=== PATIENT | female | born 1965 | race Caucasian/White ===

== ENCOUNTER 2023-07-28 12:26 | Day surgery (SDC) | payer BC ==
[2023-07-28] MEDS ORDERED: LIDOCAINE HCL 1% 50 MG/5 ML VL PF IJ ONE (12:27)
[2023-07-28] MEDS ORDERED: DIPRIVAN 200 MG/20 ML IV ONE (14:29)
--- NOTE | 2023-07-28 15:04 | XRAY ---
Indication: Bilateral L4-S1 MBB. Intraoperative fluoroscopy provided for 15 seconds. Single digital spot image submitted for interpretation demonstrates posterior needle tips projecting over the expected left and right L4-S1 nerve roots. Correlate with intraoperative findings/report.
[2023-07-28] MEDS ORDERED: Lactated Ringers 1,000 ML IV ONE (15:06)
--- NOTE | 2023-07-28 17:05 | XRAY ---
15 seconds of fluoroscopy was used in surgery for a bilateral L4-S1 MBB.
== END 2023-07-28 15:00 | disposition home or self-care (01) ==
LOC: SDC-PAIN 12:26
PROVIDERS: ATTEND Psychiatry & Neurology Pain Medicine
DX: M47.816 Spondylosis without myelopathy or radiculopathy, lumbar region (principal); Z79.899 Other long term (current) drug therapy
CPT/HCPCS: 64493; 64494; 72020; 77002; J2001; J2704

== ENCOUNTER 2023-09-08 13:51 | Day surgery (SDC) | payer BC ==
[2023-09-08] MEDS ORDERED: BUPIVACAINE 0.5% VIAL IJ ONE (13:52)
[2023-09-08] MEDS ORDERED: XYLOCAINE 1% HCL 20 ML MDV IJ ONE (13:52)
[2023-09-08] MEDS ORDERED: Depo-Medrol 40 MG/ML IM ONE (13:52)
[2023-09-08] MEDS ORDERED: DIPRIVAN 200 MG/20 ML IV ONE (16:55)
[2023-09-08] MEDS ORDERED: Lactated Ringers 1,000 ML IV ONE (17:42)
--- NOTE | 2023-09-08 21:26 | XRAY ---
Indication: Bilateral SI joint injection. Intraoperative fluoroscopy provided for 24 seconds. 4 digital spot image submitted for interpretation demonstrates posterior needle tip projecting over the expected left and right SI joint. Correlate with intraoperative findings/report.
--- NOTE | 2023-09-09 09:39 | XRAY ---
24 seconds of fluoroscopy was used in surgery for a bilateral sacroiliac joint injection.
== END 2023-09-08 17:25 | disposition home or self-care (01) ==
LOC: SDC-PAIN 13:51
PROVIDERS: ATTEND Psychiatry & Neurology Pain Medicine
DX: M46.1 Sacroiliitis, not elsewhere classified (principal)
CPT/HCPCS: 20553; 27096; 72202; 77002; J1030; J2704; G0260

== ENCOUNTER 2023-10-13 13:53 | Day surgery (SDC) | payer BC ==
[2023-10-13] MEDS ORDERED: BUPIVACAINE 0.5% VIAL IJ ONE (13:54)
[2023-10-13] MEDS ORDERED: Depo-Medrol 40 MG/ML IM ONE (13:54)
[2023-10-13] MEDS ORDERED: XYLOCAINE-MPF 1% 5ML SDV IJ ONE (13:54)
[2023-10-13] MEDS ORDERED: Decadron 4 MG INJ IV ONE (13:54)
[2023-10-13] MEDS ORDERED: DIPRIVAN 200 MG/20 ML IV ONE (15:23)
[2023-10-13] MEDS ORDERED: Lactated Ringers 1,000 ML IV ONE (17:10)
--- NOTE | 2023-10-13 17:19 | XRAY ---
Indication: Bilateral hip and bilateral piriformis injection. Intraoperative fluoroscopy provided for 1 minutes 7 seconds. 5 digital spot images submitted for interpretation demonstrates posterior needle tips projecting over the left/right piriformis. Additional needle tips lateral to the left/right femur necks. Small amount of contrast injected for all needle tip placement. Correlate with intraoperative findings/report.
--- NOTE | 2023-10-13 17:41 | XRAY ---
One minute and 7 seconds of fluoroscopy was used in surgery for a bilateral intra-articular hip and piriformis injection.
== END 2023-10-13 15:50 | disposition home or self-care (01) ==
LOC: SDC-PAIN 13:53
PROVIDERS: ATTEND Psychiatry & Neurology Pain Medicine
DX: M16.12 Unilateral primary osteoarthritis, left hip (principal); M16.11 Unilateral primary osteoarthritis, right hip; M79.18 Myalgia, other site
CPT/HCPCS: 20552; 20610; 73522; 77002; J1030; J1100; J2704; Q9966

== ENCOUNTER 2024-01-05 11:49 | Day surgery (SDC) | payer BC ==
[2024-01-05] MEDS ORDERED: Depo-Medrol 40 MG/ML IM ONE (11:50)
[2024-01-05] MEDS ORDERED: BUPIVACAINE 0.5% VIAL IJ ONE (11:50)
[2024-01-05] MEDS ORDERED: Lactated Ringers 1,000 ML IV ONE (13:43)
[2024-01-05] MEDS ORDERED: DIPRIVAN 200 MG/20 ML IV ONE (13:45)
--- NOTE | 2024-01-05 17:07 | XRAY ---
Indication: Right knee injection. Intraoperative fluoroscopy provided for 9 seconds. Single digital spot image submitted for interpretation demonstrates needle tip projecting over right femur intercondylar notch. Small amount of contrast injected for needle tip placement. Correlate with intraoperative findings/report.
--- NOTE | 2024-01-05 17:07 | XRAY ---
Indication: Left knee injection. Intraoperative fluoroscopy provided for 8 seconds. Single digital spot image submitted for interpretation demonstrates needle tip projecting over left femur intercondylar notch. Small amount of contrast injected for needle tip placement. Correlate with intraoperative findings/report.
--- NOTE | 2024-01-05 17:41 | XRAY ---
9 seconds of fluoroscopy was used in surgery for a right intra-articular knee injection.
--- NOTE | 2024-01-05 17:41 | XRAY ---
8 seconds of fluoroscopy was used in surgery for a left intra-articular knee injection.
== END 2024-01-05 14:10 | disposition home or self-care (01) ==
LOC: SDC-PAIN 11:49
PROVIDERS: ATTEND Psychiatry & Neurology Pain Medicine
DX: M17.0 Bilateral primary osteoarthritis of knee (principal)
CPT/HCPCS: 20610; 73560; 77002; J1030; J2704; Q9966

== ENCOUNTER 2024-06-21 12:10 | Day surgery (SDC) | payer BC ==
[2024-06-21] MEDS ORDERED: BUPIVACAINE 0.5% VIAL IJ ONE (12:11)
[2024-06-21] MEDS ORDERED: Depo-Medrol 40 MG/ML IM ONE (12:11)
[2024-06-21] MEDS ORDERED: DIPRIVAN 200 MG/20 ML IV ONE (13:31)
[2024-06-21] MEDS ORDERED: Lactated Ringers 1,000 ML IV ONE (13:49)
--- NOTE | 2024-06-21 15:02 | XRAY ---
Indication: Bilateral SI joint injection. Intraoperative fluoroscopy provided for 28 seconds. 4 digital spot image submitted for interpretation demonstrates posterior needle tips projecting over the expected left and right SI joint. Small amount of contrast injected for needle tip placement. Correlate with intraoperative findings/report.
--- NOTE | 2024-06-21 16:52 | XRAY ---
28 seconds of fluoroscopy was used in surgery for a bilateral sacroiliac joint injection.
== END 2024-06-21 13:57 | disposition home or self-care (01) ==
LOC: SDC-PAIN 12:10
PROVIDERS: ATTEND Psychiatry & Neurology Pain Medicine
DX: M46.1 Sacroiliitis, not elsewhere classified (principal)
CPT/HCPCS: 27096; 72202; 77002; J2704; Q9967; G0260

== ENCOUNTER 2024-10-11 12:02 | Day surgery (SDC) | payer BC ==
[2024-10-11] MEDS ORDERED: Depo-Medrol 40 MG/ML IM ONE (12:03)
[2024-10-11] MEDS ORDERED: BUPIVACAINE 0.5% VIAL IJ ONE (12:03)
[2024-10-11] MEDS ORDERED: DIPRIVAN 200 MG/20 ML IV ONE (14:30)
--- NOTE | 2024-10-11 16:35 | XRAY ---
Indication: Bilateral SI joint injection. Intraoperative fluoroscopy provided for 27 second. 4 digital spot image submitted for interpretation demonstrates posterior needle tips projecting over left and right SI joint. Small amount of contrast injected for both needle tip placement. Correlate with intraoperative findings/report.
--- NOTE | 2024-10-11 16:47 | XRAY ---
27 seconds of fluoroscopy was used in surgery for a bilateral sacroiliac joint injection.
== END 2024-10-11 15:09 | disposition home or self-care (01) ==
LOC: SDC-PAIN 12:02
PROVIDERS: ATTEND Psychiatry & Neurology Pain Medicine
DX: M46.1 Sacroiliitis, not elsewhere classified (principal)
CPT/HCPCS: 27096; 72202; 77002; J2704; Q9966

== ENCOUNTER 2024-12-07 10:44 | Day surgery (SDC) | payer BC ==
[2024-12-07] MEDS ORDERED: Sensorcaine 0.25% 10 ML IJ ONE (10:45)
[2024-12-07] MEDS ORDERED: methylPREDNISolone acetate IM ONE (10:45)
[2024-12-07] MEDS ORDERED: propofoL IV ONE (12:26)
[2024-12-07] MEDS ORDERED: SUBLIMAZE 100 MCG/2 ML ONE (12:31)
--- NOTE | 2024-12-07 13:21 | XRAY ---
Indication: Bilateral hip and greater trochanter bursa injection Intraoperative fluoroscopy provided for 41 seconds. 6 digital spot image submitted for interpretation demonstrates needle tips lateral to left/right femur necks and left/right greater trochanters. Small amount of contrast injected for all needle tip placement. Correlate with intraoperative findings/report.
--- NOTE | 2024-12-07 13:46 | XRAY ---
41 seconds of fluoroscopy was used in surgery for a bilateral intra-articular hip and greater trochanteric bursa injection.
== END 2024-12-07 13:00 | disposition home or self-care (01) ==
LOC: SDC-PAIN 10:44
PROVIDERS: ATTEND Psychiatry & Neurology Pain Medicine
DX: M16.0 Bilateral primary osteoarthritis of hip (principal); M70.62 Trochanteric bursitis, left hip; M70.61 Trochanteric bursitis, right hip
CPT/HCPCS: 20610; 73522; 77002; J1010; J2704; J3010; Q9966

== ENCOUNTER 2025-01-31 10:47 | Day surgery (SDC) | payer BC ==
[2025-01-31] MEDS ORDERED: LIDOCAINE HCL 2% 100 MG/5 ML IJ ONE (10:48)
[2025-01-31] MEDS ORDERED: propofoL IV ONE (12:43)
--- NOTE | 2025-01-31 15:04 | XRAY ---
Indication: Bilateral L4-S1 MBB. Intraoperative fluoroscopy provided for 29 seconds. Single digital spot image submitted for interpretation demonstrates posterior needle tips projecting over expected left and right L4-S1 nerve roots. Correlate with intraoperative findings/report.
--- NOTE | 2025-01-31 15:33 | XRAY ---
29 seconds of fluoroscopy was used in surgery for a bilateral L4-S1 MBB.
== END 2025-01-31 13:20 | disposition home or self-care (01) ==
LOC: SDC-PAIN 10:47
PROVIDERS: ATTEND Psychiatry & Neurology Pain Medicine
DX: M47.816 Spondylosis without myelopathy or radiculopathy, lumbar region (principal)
CPT/HCPCS: 64493; 64494; 72020; 77002; J2704

== ENCOUNTER 2025-03-14 11:33 | Day surgery (SDC) | payer BC ==
[2025-03-14] MEDS ORDERED: Depo-Medrol 40 MG/ML IM ONE (11:34)
[2025-03-14] MEDS ORDERED: BUPIVACAINE 0.5% VIAL IJ ONE (11:34)
[2025-03-14] MEDS ORDERED: propofoL IV ONE (14:19)
--- NOTE | 2025-03-14 16:30 | XRAY ---
Indication: Bilateral L4-S1 MBB. Intraoperative fluoroscopy provided for 18 seconds. Single digital spot image submitted for interpretation demonstrates posterior needle tips projecting over expected left and right L4-S1 nerve roots. Correlate with intraoperative findings/report.
--- NOTE | 2025-03-14 16:46 | XRAY ---
18 seconds of fluoroscopy was used in surgery for a bilateral L4-S1 MBB.
== END 2025-03-14 14:57 | disposition home or self-care (01) ==
LOC: SDC-PAIN 11:33
PROVIDERS: ATTEND Psychiatry & Neurology Pain Medicine
DX: M47.817 Spondylosis without myelopathy or radiculopathy, lumbosacral region (principal)
CPT/HCPCS: 64493; 64494; 72020; J2704

== ENCOUNTER 2025-04-11 12:36 | Day surgery (SDC) | payer BC ==
[2025-04-11] MEDS ORDERED: BUPIVACAINE 0.5% VIAL IJ ONE (12:37)
[2025-04-11] MEDS ORDERED: methylPREDNISolone acetate IM ONE (12:37)
[2025-04-11] MEDS ORDERED: LIDOCAINE HCL 1% 50 MG/5 ML VL IJ ONE (12:37)
[2025-04-11] MEDS ORDERED: propofoL IV ONE (14:49)
[2025-04-11] MEDS ORDERED: Lactated Ringers 1,000 ML IV ONE (16:37)
--- NOTE | 2025-04-11 21:08 | XRAY ---
Indication: Right L4-S1 RFA. Intraoperative fluoroscopy provided for 28 seconds. 3 digital spot image submitted for interpretation demonstrates posterior needle tips projecting over expected right L4-S1 nerve roots. Correlate with intraoperative findings/report.
--- NOTE | 2025-04-11 21:22 | XRAY ---
28 seconds of fluoroscopy was used in surgery for a right L4-S1 RFA.
== END 2025-04-11 15:29 | disposition home or self-care (01) ==
LOC: SDC-PAIN 12:36
PROVIDERS: ATTEND Psychiatry & Neurology Pain Medicine
DX: M47.817 Spondylosis without myelopathy or radiculopathy, lumbosacral region (principal)
CPT/HCPCS: 64635; 64636; 72100; J1010; J2704

== ENCOUNTER 2025-08-22 11:06 | Day surgery (SDC) | payer BC ==
[2025-08-22] MEDS ORDERED: GELSYN-3 IU ONE (11:07)
[2025-08-22] MEDS ORDERED: propofoL IV ONE ×2 (12:49→13:17)
[2025-08-22] MEDS ORDERED: Xylocaine-Mpf 2% 5 Ml Vial ONE (13:14)
[2025-08-22] MEDS ORDERED: Lactated Ringers 1,000 ML IV ONE (13:47)
--- NOTE | 2025-08-22 14:54 | XRAY ---
Indication: Right knee injection. Intraoperative fluoroscopy provided for 5 seconds. Single digital spot image submitted for interpretation demonstrates needle tip projecting over right femur intercondylar notch. Small amount of contrast injected for needle tip placement. Correlate with intraoperative findings/report.
--- NOTE | 2025-08-22 14:54 | XRAY ---
Indication: Left knee injection. Intraoperative fluoroscopy provided for 4 seconds. Single digital spot image submitted for interpretation demonstrates needle tip projecting over left femur intercondylar notch. Small amount of contrast injected for needle tip placement. Correlate with intraoperative findings/report.
--- NOTE | 2025-08-22 16:54 | XRAY ---
5 seconds of fluoroscopy was used in surgery for a right intra-articular knee injection.
--- NOTE | 2025-08-22 16:54 | XRAY ---
4 seconds of fluoroscopy was used in surgery for a left intra-articular knee injection.
== END 2025-08-22 13:42 | disposition home or self-care (01) ==
LOC: SDC-PAIN 11:06
PROVIDERS: ATTEND Psychiatry & Neurology Pain Medicine
DX: M17.0 Bilateral primary osteoarthritis of knee (principal)

== ENCOUNTER 2025-08-29 10:35 | Day surgery (SDC) | payer BC ==
[2025-08-29] MEDS ORDERED: ORTHOVISC IU ONE (10:36)
[2025-08-29] MEDS ORDERED: propofoL IV ONE (12:31)
[2025-08-29] MEDS ORDERED: Xylocaine-Mpf 2% 5 Ml Vial ONE (12:31)
--- NOTE | 2025-08-29 14:25 | XRAY ---
8 seconds of fluoroscopy used in surgery for a right intra-articular knee injection.
--- NOTE | 2025-08-29 14:25 | XRAY ---
Indication: Left knee injection. Intraoperative fluoroscopy provided for 11 seconds. Single digital spot image submitted for interpretation demonstrates needle tip projecting over left femur intercondylar notch. Small amount of contrast injected for needle tip placement. Correlate with intraoperative findings/report.
--- NOTE | 2025-08-29 14:25 | XRAY ---
Indication: Right knee injection. Intraoperative fluoroscopy provided for 8 seconds. Single digital spot image submitted for interpretation demonstrates needle tip projecting over right femur intercondylar notch. Small amount of contrast injected for needle tip placement. Correlate with intraoperative findings/report.
--- NOTE | 2025-08-29 14:26 | XRAY ---
11 seconds of fluoroscopy used in surgery for a left intra-articular knee injection.
[2025-08-29] MEDS ORDERED: Lactated Ringers 1,000 ML IV ONE (15:18)
== END 2025-08-29 13:10 | disposition home or self-care (01) ==
LOC: SDC-PAIN 10:35
PROVIDERS: ATTEND Psychiatry & Neurology Pain Medicine
DX: M17.0 Bilateral primary osteoarthritis of knee (principal)

== ENCOUNTER 2025-10-31 14:27 | Day surgery (SDC) | payer BC ==
[2025-10-31] MEDS ORDERED: methylPREDNISolone acetate IM ONE (14:28)
[2025-10-31] MEDS ORDERED: BUPIVACAINE 0.5% VIAL IJ ONE (14:28)
[2025-10-31] MEDS ORDERED: Lactated Ringers 1,000 ML IV ONE (15:48)
[2025-10-31] MEDS ORDERED: propofoL IV ONE (16:32)
--- NOTE | 2025-10-31 18:08 | XRAY ---
Indication: Bilateral SI joint injection. Intraoperative fluoroscopy provided for 26 seconds. 2 digital spot image submitted for interpretation demonstrates posterior needle tip projecting over left and right SI joints. Small amount of contrast injected for both needle tip placement. Correlate with intraoperative findings/report.
--- NOTE | 2025-11-01 10:08 | XRAY ---
26 seconds of fluoroscopy was used in surgery for a bilateral sacroiliac joint injection.
== END 2025-10-31 17:12 | disposition home or self-care (01) ==
LOC: SDC-PAIN 14:27
PROVIDERS: ATTEND Psychiatry & Neurology Pain Medicine
DX: M46.1 Sacroiliitis, not elsewhere classified (principal)